=== PATIENT | male | born 1995 | race Native Hawaiian/Other Pacific Islander ===

== ENCOUNTER 2019-03-21 12:13 | Day surgery (SDC) | payer OTHER ==
[2019-03-21] MEDS ORDERED: CEFAZOLIN SODIUM IN 0.9 % NACL 2 GM/100 ML BAG IV ONE (12:37)
[2019-03-21] MEDS ORDERED: LACTATED RINGERS 1,000 ML IV ONE (12:55)
--- NOTE | 2019-03-21 13:02 | ANESTHESIA ---
Pre-Anesthesia VS, & Labs - Diagnosis right hand carpal-metacarpal fractures of 4th and 5th fingers - Procedure ORIF of 4th and 5th carpal-metacarpal fractures right hand Vital Signs: Temp Pulse Resp BP Pulse Ox 36.5 C 51 L 18 132/68 H 98 03/21/19 12:25 03/21/19 12:25 03/21/19 12:25 03/21/19 12:25 03/21/19 12:25 Height 5 ft 8 in Weight (kg) 86.5 kg - NPO >8 hours Home Medications and Allergies Home Medications: Ambulatory Orders No Known Home Medications 03/20/19 No Known Home Medications 03/20/19 Allergies/Adverse Reactions: Allergies Allergy/AdvReac Type Severity Reaction Status Date / Time No Known Drug Allergies Allergy Verified 03/20/19 13:51 Anes History & Medical History - Anesthetic History Anesthesia Complications: reports: No previous complications - Medical History Cardiovascular: reports: None Pulmonary: reports: None Gastrointestinal: reports: None Urinary: reports: None Musculoskeletal: reports: None Endocrine/Autoimmune: reports: None Skin: reports: None Smoking Status: Current every day smoker (vapes tobacco) Exam General: Alert, Oriented x3 Plan Anesthesia Type: General, Supraclavicular Block Consent for Procedure(s) Verified and Reviewed: Yes Code Status: Attempt Resuscitation ASA classification: 2-Mild systemic disease Is this case an emergency?: No
[2019-03-21] MEDS ORDERED: BUPIVACAINE 0.25% PF 30 ML VIAL ONE (13:26)
[2019-03-21] MEDS ORDERED: ONDANSETRON 4 MG/2 ML VIAL IVP PRN (16:12)
[2019-03-21] MEDS ORDERED: oxyCODONE 5 MG TABLET PO PRN (16:12)
--- NOTE | 2019-03-21 16:24 | OPERATIVE REPORT ---
Operative Report - Other Other Information/Narrative: Date of Surgery: 21 March 2019 Pre-Op Diagnosis: Right fourth carpometacarpal joint fracture dislocation. Right fifth carpometacarpal joint fracture dislocation. Right hamate fracture Procedure: Open reduction internal fixation of right hamate. Open reduction and percutaneous fixation of fourth carpometacarpal joint. Open reduction and percutaneous fixation of fifth carpometacarpal joint Postop Diagnosis: Same Primary Surgeon: Chito Hoffmann Secondary Surgeon: Matthew Hassan Complications: None Tourniquet Time: 101 minutes EBL: 1 cc Postoperative Protocol: Leave splint on until follow-up. Suture tails cut at 2 weeks. Ulnar gutter splint until 4 weeks postop. Pins out at 4 weeks and 3,4,5 removable ulnar gutter splint until 8 weeks. Range of motion may begin at 4 weeks. May advance activities at 8 weeks Indication For Surgery: 23-year-old male sustained the above diagnoses when he fell while running on March 10. He was on temporary assignment to [employer], an [employer] and presented to the clinic on the . He then returned to our local area on the when a routine consult was placed. He was seen in the clinic on the and set up for surgery today due to the unstable nature of his fractures and significant displacement of his articular surface.. The risks, benefits, and alternatives were discussed. Risks include pain, bleeding, infection, damage to nearby structures, numbness, lack of symptom relief, implant complications, nonunion, need for further surgery, DVT, PE, stroke, and . Written consent was obtained. Procedure in Detail: The patient was met in the pre-operative hold area on the day of the procedure. The operative extremity was signed and questions were answered. The patient was brought to the operating room and a general anesthetic was administered. Supine position was used and bony prominences were padded. Standard prepping and draping was performed. A time out confirmed patient identification, laterality, procedure, allergies, antibiotics, and images. An Esmarch was used to exsanguinate the limb and the tourniquet was elevated to 250 mmHg. A dorsal approach was made between the fourth and fifth digits at the level of the hamate fracture. Blunt dissection was used to find the interval between the fourth and fifth extensor tendons and a full-thickness incision was made down to the capsule. Capsule was carefully dissected off of the hamate fracture and the base of the fourth and fifth metacarpals. Soft tissue and capsule was left attached to the hamate on both the radial and ulnar surfaces, capsule was excised at the distal and proximal surfaces so the joint and the proximal fracture line could be clearly visualized for reduction. I also dissected over to the articulation between the base of the fourth and the third metacarpals. Traction was then pulled on the fourth metacarpal and it was reduced to the third and the volar portion of the hamate that was intact. This was then pinned in place to the third. The fifth was then pulled out to length and the artic ulation between the fifth and fourth was reduced anatomically. A 1.6 K wire was brought from the fifth to the fourth to the third from ulnar to radial. I then booked open the fracture and cleared out all blocks to reduction to include a small chunk of bone with some cartilage on it. It was not clear where the donor site for this was and it was therefore discarded. With the base of the fourth a nd the fifth as my guide and the volar portion of the hamate cartilage visible the hamate fracture was then reduced anatomically and pinned into place along the periphery. X-rays confirmed reduction. A 2.0 millimeters plate was then selected ensuring to have 2 screws into the more critical portion of the hamate that articulated with the fifth and one screw into the articulation of the fourth fragment. 3 cortical screws were then placed compressing the fracture and the plate down nicely. Prior to compression the K wire was removed. All drill holes measured 18 mm and a 16 mm screw was placed to ensure that they were not too long. Another K wire was placed ulnar to radial and the base of the fifth, fourth, and third metacarpals. Final x-rays were then taken. The wound was irrigated copiously. A layered closure was performed with approximation of the capsule, extensor retinaculum and the underlying dermis. A running Monocryl was used in the skin. Thom balls were placed. A sterile dressing and splint was applied. The patient was awakened and transferred to recovery room.
[2019-03-21 17:37] VITALS: BP 115/64
== END 2019-03-21 12:14 | disposition home or self-care (01) ==
LOC: SDS 12:13
PROVIDERS: ATTEND Orthopaedic Surgery
PROC: 0PSP04Z Reposition Right Metacarpal with Internal Fixation Device, Open Approach (ICD-10-PCS; 2019-03-21)
PROC: 0PSP04Z Reposition Right Metacarpal with Internal Fixation Device, Open Approach (ICD-10-PCS; 2019-03-21)
PROC: 0PSM04Z Reposition Right Carpal with Internal Fixation Device, Open Approach (ICD-10-PCS; principal; 2019-03-21 13:30)
DX: S62.314A Displaced fracture of base of fourth metacarpal bone, right hand, initial encounter for closed fracture (principal); S62.316A Displaced fracture of base of fifth metacarpal bone, right hand, initial encounter for closed fracture; S62.141A Displaced fracture of body of hamate [unciform] bone, right wrist, initial encounter for closed fracture; F17.290 Nicotine dependence, other tobacco product, uncomplicated
CPT/HCPCS: 25645; 26615; J0690; J7120